=== PATIENT | female | born 1985 | race Hispanic/Latino ===

== ENCOUNTER 2018-12-18 02:41 | Emergency (ER) | payer SELFPAY ==
[2018-12-18] MEDS ORDERED: Ondansetron ODT 4 MG TAB ONE (03:42)
[2018-12-18] MEDS ORDERED: HYDROcodone/Acetaminophen 10/325 mg Tablet ONE (04:39)
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
== END 2018-12-18 05:26 | disposition home or self-care (01) ==
LOC: MADERS 02:41
DX: S39.012A Strain of muscle, fascia and tendon of lower back, initial encounter (principal); M25.561 Pain in right knee; V89.2XXA Person injured in unspecified motor-vehicle accident, traffic, initial encounter
CPT/HCPCS: 71045; 72100; 72170; G0390; Q0162